=== PATIENT | male | born 1995 | race Caucasian/White ===

== ENCOUNTER 2020-03-14 13:37 | Emergency (ER) | payer MEDICAID ==
[~2020-03-14] VITALS: Ht 172.7 cm; Wt 75.7 kg
[2020-03-14 13:44] VITALS: BP 133/75
[2020-03-14] MEDS ORDERED: KETOROLAC 30 MG/ML VIAL IM ONE (14:20)
[2020-03-14 15:31] VITALS: BP 128/65
== END 2020-03-14 15:31 | disposition home or self-care (01) ==
LOC: MED 13:37
DX: M53.3 Sacrococcygeal disorders, not elsewhere classified (principal)
CPT/HCPCS: 96372; 99283; J1885

== ENCOUNTER 2020-08-14 18:59 | Emergency (ER) | payer MEDICAID, OTHER ==
[~2020-08-14] VITALS: Ht 172.7 cm; Wt 72.3 kg
[2020-08-14 19:07] VITALS: BP 116/66
--- NOTE | 2020-08-14 19:12 | NUR ---
PT TAKEN TO BED 5
--- NOTE | 2020-08-14 19:15 | NUR ---
24 Y/O MALE PRESENTED TO ED C/O RT EYE PAIN X 6 DAYS. PT STATES IT IS GETTING PROGESSIVELY WORSE. PT C/O PREVIOUS PAIN IN ORBITAL AREA BUT CURRENTLY FEELS PAIN INSIDE EYE. PT CAME TO ED BECAUSE HE IS NOW HAVING DIFFICULTY CLOSING HIS RT EYE. PT C/O ITCHINESS , BLURRY VISION , PHOTOPHOBIA , RT EYE DISCHARGE. OBSERVED PERRLA , 4MM . OBSERVED SCELERA REDNESS AT THIS TIME. PT RESTING IN BED , LOCKED AND IN LOWEST POSITION, HOB ELEVATED, SIDE RAIL X1. VSS, ERMD MADE AWARE OF PT STATUS. PMH: DENIES AX: CATS ,
--- NOTE | 2020-08-14 19:18 | NUR ---
Dr. Sinclair examining patient.
[2020-08-14] MEDS ORDERED: FLUORESCEIN OPTH STRIP 1 MG ONE (19:35)
[2020-08-14] MEDS ORDERED: TETRACAINE HCL/PF 0.5% OPTH 4 ML BTL ONE (19:36)
[2020-08-14 21:16] VITALS: BP 121/72
--- NOTE | 2020-08-14 21:16 | NUR ---
Patient discharged with v/s stable. Written and verbal after care instructions given and explained. Patient alert, oriented and verbalized understanding of instructions. Ambulatory with steady gait. All questions addressed prior to discharge. ID band removed. Patient advised to follow up with PMD. Rx of ERYTHROMYCIN given. Patient educated on indication of medication including possible reaction and side effects. Opportunity to ask questions provided and answered.
== END 2020-08-14 21:16 | disposition home or self-care (01) ==
LOC: MED 18:59
DX: H10.9 Unspecified conjunctivitis (principal); H00.013 Hordeolum externum right eye, unspecified eyelid
CPT/HCPCS: 99283